=== PATIENT | male | born 1985 | race African-American/Black ===

== ENCOUNTER 2018-09-30 04:48 | Emergency (ER) | payer MEDICARE, MEDICAID ==
[~2018-09-30] VITALS: Ht 170.2 cm; Wt 70.0 kg
[2018-09-30 04:51] VITALS: BP 141/82; PULSE 88; RESP 19; Ht 170.2 cm; Wt 70.0 kg
[2018-09-30] MEDS ORDERED: ACETAMINOPHEN 500 MG TAB PO STA (05:05)
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
[2018-09-30] MEDS ORDERED: IBUP-1542 PO (05:22)
== END 2018-09-30 06:19 | disposition home or self-care (01) ==
LOC: FTE 04:48
DX: M79.671 Pain in right foot (principal)
CPT/HCPCS: 73630